=== PATIENT | female | born 1945 | race Caucasian/White ===

== ENCOUNTER 2023-01-04 05:22 | Inpatient (IN) | payer BC, MEDICARE ==
[2023-01-04 06:18] LABS: #Basophils 0.1 thou/uL (0.0-0.2); #Eosinphils 0.1 thou/uL (0.0-0.7); #Monocytes 0.4 thou/uL (0.11-0.59); %Basophils 0.6 % (0.0-1.0); %Eosinophils 0.7 % (0.0-10.0); %Lymphocytes 19.2 % (21.0-51.0); %Neutrophils 73.4 % (42.0-75.0); Hematocrit 40.8 % (36.0-47.0); Hemoglobin 13.8 g/dL (12.0-16.0); Mean Corpuscular HGB CONC 33.8 g/dL (32.0-36.0); Mean Corpuscular Hemoglobin 30.1 pg (27.0-31.0); Mean Corpuscular Volume 89.1 fl (78.0-98.0); Mean Platelet Volume 8.1 fL (7.4-10.4); Platelet Count 213 10x3/uL (130-400); RBC Distribution Width 13.1 % (11.5-14.5); Red Blood Cell (RBC) Count 4.58 mill/uL (4.20-5.40); White Blood Cell (WBC) Count 8.2 10x3/uL (4.8-10.8)
[2023-01-04 06:22] LABS: Actual Bicarbonate (HCO3v) 24.4 mEq/L (22-28); Base Excess -1.1 mEq/L (-2.0 to +3.0); Chloride (VBG) 99 mmol/L (98-106); Hematocrit-VBG 44 % (36.0-47.0); Hemoglobin (Hb) 14.8 g/dL (11.7-16.1); Potassium (VBG) 3.71 mmol/L (3.70-5.30); Sodium 128.6 mmol/L (133-146); pH (venous) 7.364 (7.32-7.43)
[2023-01-04 06:25] LABS: Bacteria/HPF None Seen HPF (None Seen); Bilirubin Negative (Negative); Blood, Urine Negative (Negative); CAUTI Indications for Culture < 2yrs of age; Clarity Clear (Clear); Glucose, Urine (Dipstick) Greater than 1000 mg/dL (Negative); Ketone, Urine 60 mg/dL (Negative); Leukocyte 25 Leu/uL (Negative); Nitrite Negative (Negative); Protein, Urine (Dipstick) Negative (Neg-Trace); RBC/HPF 0-3 HPF (0-3); Specific Gravity, Urine 1.013 (1.002-1.036); Squamous Epithelial None Seen HPF (0-3); Urobilinogen Normal mg/dL (Less than 2)
[2023-01-04 06:27] LABS: Urine Culture Reflex Yes Yes
[2023-01-04] MEDS ORDERED: fentaNYL 50 mcg/mL 1 mL Vial ONE (06:36)
[2023-01-04 06:48] LABS: ALT (SGPT) 16 U/L (8-55); AST (SGOT) 16 U/L (5-34); Albumin 4.1 g/dL (3.4-4.8); Alkaline Phosphatase 65 U/L (40-110); Anion Gap 19 mmol/L (10-20); BUN (Urea Nitrogen) 9 mg/dL (9.8-20.1); Bilirubin, Total 0.5 mg/dL (0.2-1.2); Calc. Creatinine Clearance 0 mL/min (70-130); Carbon Dioxide 23 mmol/L (23-31); Chloride 101 mmol/L (98-107); Estimated GFR 90; Globulin 2.9 g/dL (2.4-3.5); Glucose 340 mg/dL (83-110); Potassium 3.6 mmol/L (3.5-5.1); Sodium 139 mmol/L (136-145)
[2023-01-04] MEDS ORDERED: Ondansetron PF 4 MG/2 ML Vial ONE (06:49)
[2023-01-04] MEDS ORDERED: Ipratropium/Albuterol 3 ML NEB NEB PRN ×2 (07:24→07:26)
[2023-01-04] MEDS ORDERED: Ondansetron PF 4 MG/2 ML Vial IVP PRN (07:24)
[2023-01-04] MEDS ORDERED: Sodium Chloride 0.9% 1,000 ML IV SCH (07:30)
[2023-01-04] MEDS ORDERED: Lisinopril 10 MG TAB ONE (07:55)
[2023-01-04] MEDS ORDERED: Dextrose 50% Abboject 50 ML SYRINGE SLOW IVP PRN (08:05)
[2023-01-04] MEDS ORDERED: Dextrose 5% in Water 1,000 ML IV PRN (08:05)
[2023-01-04] MEDS ORDERED: Glucagon 1 MG/ML KIT IM PRN (08:05)
[2023-01-04] MEDS ORDERED: Lisinopril 20 MG TAB PO SCH (08:30)
[2023-01-04] MEDS ORDERED: Acetaminophen 500 MG TAB ONE ×2 (08:51→15:09)
[2023-01-04] MEDS ORDERED: Famotidine/PF 20 mg/2ml Vial ONE (08:51)
[2023-01-04] MEDS ORDERED: Insulin Glargine 30 UNITS/0.3 ML VIAL SC SCH (09:00)
[2023-01-04] MEDS ORDERED: Calcium Chloride 13.6 MEQ in Sodium Chloride 0.9% 100 ML IVPB SCH (09:00)
[2023-01-04] MEDS: Famotidine/PF 20 mg/2ml Vial SLOW IVP SCH ×2 (09:02→22:33)
[2023-01-04] MEDS: Acetaminophen 500 MG TAB PO SCH ×3 (09:04→22:34)
[2023-01-04] MEDS: Gabapentin 100 MG CAP PO SCH ×3 (10:24→22:33)
[2023-01-04] MEDS: Polyethylene Glycol 3350 17 GM Packet PO SCH (10:25)
[2023-01-04] MEDS: Senokot S 8.6-50 MG TAB PO SCH ×2 (10:25→22:34)
[2023-01-04] MEDS ORDERED: traMADol HCl 50 MG TAB ONE ×2 (11:22→18:30)
[2023-01-04] MEDS: traMADol HCl 50 MG TAB PO SCH ×3 (11:28→23:33)
[2023-01-04] MEDS ORDERED: hydrALAZINE 20 MG/ML VIAL SLOW IVP PRN (14:10)
[2023-01-04] MEDS ORDERED: Labetalol HCl 100 MG/20 ML VIAL SLOW IVP PRN (14:10)
[2023-01-04] MEDS: Morphine 2 MG/ML VIAL SLOW IVP PRN (22:33)
[2023-01-04] MEDS: Atorvastatin Calcium 20 MG TAB PO SCH (22:34)
[2023-01-04] MEDS: metFORMIN XR 500 MG TAB PO SCH (22:34)
[2023-01-04] MEDS: Lisinopril 20 MG TAB PO SCH (22:34)
[2023-01-04] MEDS: Metoprolol Tartrate 25 MG TAB PO SCH (22:34)
[2023-01-04] MEDS: Insulin Glargine 30 UNITS/0.3 ML VIAL SC SCH (22:34)
[2023-01-05] MEDS: Acetaminophen 500 MG TAB PO SCH ×4 (03:58→20:18)
[2023-01-05] MEDS: traMADol HCl 50 MG TAB PO SCH ×4 (05:39→23:42)
[2023-01-05 06:22] LABS: #Eosinphils 0.1 thou/uL (0.0-0.7); #Monocytes 0.5 thou/uL (0.11-0.59); #Neutrophils 4.2 thou/uL (1.40-6.50); %Basophils 0.6 % (0.0-1.0); %Eosinophils 1.7 % (0.0-10.0); %Monocytes 8.3 % (0.0-10.0); %Neutrophils 65.9 % (42.0-75.0); Hematocrit 36.3 % (36.0-47.0); Hemoglobin 12.2 g/dL (12.0-16.0); Mean Corpuscular HGB CONC 33.6 g/dL (32.0-36.0); Mean Corpuscular Hemoglobin 30.4 pg (27.0-31.0); Mean Corpuscular Volume 90.5 fl (78.0-98.0); Mean Platelet Volume 8.2 fL (7.4-10.4); Platelet Count 184 10x3/uL (130-400); RBC Distribution Width 13.4 % (11.5-14.5); Red Blood Cell (RBC) Count 4.01 mill/uL (4.20-5.40); White Blood Cell (WBC) Count 6.4 10x3/uL (4.8-10.8)
[2023-01-05 06:49] LABS: Anion Gap 14 mmol/L (10-20); BUN (Urea Nitrogen) 10 mg/dL (9.8-20.1); Calc. Creatinine Clearance 77 mL/min (70-130); Calcium 8.8 mg/dL (7.8-10.44); Carbon Dioxide 21 mmol/L (23-31); Chloride 104 mmol/L (98-107); Estimated GFR 89; Glucose 197 mg/dL (83-110); Magnesium 1.9 mg/dL (1.6-2.6); Potassium 3.9 mmol/L (3.5-5.1); Sodium 135 mmol/L (136-145)
[2023-01-05 06:51] LABS: Phosphorus 3.1 mg/dL (2.3-4.7)
[2023-01-05 07:46] VITALS: BMI 27.1
[2023-01-05] MEDS: Insulin Glargine 30 UNITS/0.3 ML VIAL SC SCH ×2 (08:43→20:16)
[2023-01-05] MEDS: Famotidine/PF 20 mg/2ml Vial SLOW IVP SCH ×2 (08:43→20:16)
[2023-01-05] MEDS: Lisinopril 20 MG TAB PO SCH ×2 (08:46→20:15)
[2023-01-05] MEDS: Senokot S 8.6-50 MG TAB PO SCH ×2 (08:46→20:15)
[2023-01-05] MEDS: Gabapentin 100 MG CAP PO SCH ×3 (08:46→20:15)
[2023-01-05] MEDS: metFORMIN XR 500 MG TAB PO SCH ×2 (08:46→20:15)
[2023-01-05] MEDS: Metoprolol Tartrate 25 MG TAB PO SCH ×2 (08:46→20:15)
[2023-01-05] MEDS: Polyethylene Glycol 3350 17 GM Packet PO SCH (08:48)
[2023-01-05] MEDS ORDERED: Lisinopril 10 MG TAB PO SCH (09:00)
[2023-01-05] MEDS ORDERED: PHENTERMINE HCL 37.5 MG PO SCH (09:00)
[2023-01-05] MEDS: Morphine 2 MG/ML VIAL SLOW IVP PRN (11:14)
[2023-01-05] MEDS: HumaLOG 300 UNITS/3 ML VIAL SC PRN ×3 (12:20→22:30)
[2023-01-05] MEDS: Atorvastatin Calcium 20 MG TAB PO SCH (20:14)
[2023-01-06] MEDS: traMADol HCl 50 MG TAB PO SCH ×5 (01:08→23:44)
[2023-01-06] MEDS: Acetaminophen 500 MG TAB PO SCH ×4 (03:09→20:47)
[2023-01-06] MEDS: HumaLOG 300 UNITS/3 ML VIAL SC PRN ×4 (06:24→22:04)
[2023-01-06] MEDS: Gabapentin 100 MG CAP PO SCH ×3 (09:31→20:46)
[2023-01-06] MEDS: traMADol HCl 50 MG TAB PO PRN ×2 (09:32→14:56)
[2023-01-06] MEDS: Insulin Glargine 30 UNITS/0.3 ML VIAL SC SCH ×2 (10:08→20:47)
[2023-01-06] MEDS: Lisinopril 20 MG TAB PO SCH ×2 (10:09→20:47)
[2023-01-06] MEDS: metFORMIN XR 500 MG TAB PO SCH ×2 (10:09→20:46)
[2023-01-06] MEDS: Metoprolol Tartrate 25 MG TAB PO SCH ×2 (10:09→20:47)
[2023-01-06] MEDS: Senokot S 8.6-50 MG TAB PO SCH ×2 (10:09→20:47)
[2023-01-06] MEDS: Polyethylene Glycol 3350 17 GM Packet PO SCH (10:12)
[2023-01-06] MEDS: Famotidine/PF 20 mg/2ml Vial SLOW IVP SCH ×2 (10:16→20:47)
[2023-01-06] MEDS: hydrALAZINE 20 MG/ML VIAL SLOW IVP PRN (17:42)
[2023-01-06] MEDS: Atorvastatin Calcium 20 MG TAB PO SCH (20:46)
[2023-01-07] MEDS: Acetaminophen 500 MG TAB PO SCH ×4 (03:17→20:42)
[2023-01-07] MEDS: traMADol HCl 50 MG TAB PO SCH ×4 (06:18→23:05)
[2023-01-07] MEDS: HumaLOG 300 UNITS/3 ML VIAL SC PRN ×3 (06:19→20:41)
[2023-01-07] MEDS: hydrALAZINE 20 MG/ML VIAL SLOW IVP PRN (06:29)
[2023-01-07] MEDS ORDERED: diphenhydrAMINE 25 MG CAP PO PRN (07:46)
[2023-01-07] MEDS: Lisinopril 20 MG TAB PO SCH ×2 (08:06→20:42)
[2023-01-07] MEDS: metFORMIN XR 500 MG TAB PO SCH ×2 (08:06→20:42)
[2023-01-07] MEDS: Famotidine/PF 20 mg/2ml Vial SLOW IVP SCH (08:07)
[2023-01-07] MEDS: Insulin Glargine 30 UNITS/0.3 ML VIAL SC SCH ×2 (08:07→20:41)
[2023-01-07] MEDS: Senokot S 8.6-50 MG TAB PO SCH ×2 (08:07→20:42)
[2023-01-07] MEDS: Metoprolol Tartrate 25 MG TAB PO SCH ×2 (08:07→20:42)
[2023-01-07] MEDS: Gabapentin 100 MG CAP PO SCH ×3 (08:07→20:43)
[2023-01-07] MEDS: Polyethylene Glycol 3350 17 GM Packet PO SCH (08:10)
[2023-01-07] MEDS: traMADol HCl 50 MG TAB PO PRN (17:43)
[2023-01-07] MEDS: Cyclobenzaprine 10 MG TAB PO PRN (20:42)
[2023-01-07] MEDS: Atorvastatin Calcium 20 MG TAB PO SCH (20:42)
[2023-01-08] MEDS: Acetaminophen 500 MG TAB PO SCH ×4 (04:08→21:12)
[2023-01-08] MEDS: traMADol HCl 50 MG TAB PO SCH ×3 (05:05→17:54)
[2023-01-08] MEDS: Gabapentin 100 MG CAP PO SCH ×3 (09:10→21:12)
[2023-01-08] MEDS: Metoprolol Tartrate 25 MG TAB PO SCH ×2 (09:10→21:10)
[2023-01-08] MEDS: Lisinopril 20 MG TAB PO SCH ×2 (09:10→21:11)
[2023-01-08] MEDS: metFORMIN XR 500 MG TAB PO SCH ×2 (09:10→21:12)
[2023-01-08] MEDS: Insulin Glargine 30 UNITS/0.3 ML VIAL SC SCH ×2 (09:10→21:13)
[2023-01-08] MEDS: Senokot S 8.6-50 MG TAB PO SCH ×2 (11:39→21:12)
[2023-01-08] MEDS: Polyethylene Glycol 3350 17 GM Packet PO SCH (11:39)
[2023-01-08] MEDS: HumaLOG 300 UNITS/3 ML VIAL SC PRN ×2 (17:58→21:13)
[2023-01-08] MEDS: Atorvastatin Calcium 20 MG TAB PO SCH (21:12)
[2023-01-08] MEDS: Cyclobenzaprine 10 MG TAB PO PRN (22:38)
[2023-01-08] MEDS: traMADol HCl 50 MG TAB PO PRN (22:38)
[2023-01-09] MEDS: traMADol HCl 50 MG TAB PO SCH ×5 (00:05→23:33)
[2023-01-09] MEDS: Acetaminophen 500 MG TAB PO SCH ×4 (03:09→20:36)
[2023-01-09] MEDS: Metoprolol Tartrate 25 MG TAB PO SCH ×2 (10:28→20:36)
[2023-01-09] MEDS: metFORMIN XR 500 MG TAB PO SCH ×2 (10:28→20:36)
[2023-01-09] MEDS: Gabapentin 100 MG CAP PO SCH ×3 (10:29→20:36)
[2023-01-09] MEDS: Lisinopril 20 MG TAB PO SCH ×2 (10:29→20:36)
[2023-01-09] MEDS: Senokot S 8.6-50 MG TAB PO SCH ×2 (10:30→20:36)
[2023-01-09] MEDS: Polyethylene Glycol 3350 17 GM Packet PO SCH (10:30)
[2023-01-09] MEDS: Insulin Glargine 30 UNITS/0.3 ML VIAL SC SCH ×2 (10:53→20:38)
[2023-01-09] MEDS: Atorvastatin Calcium 20 MG TAB PO SCH (20:36)
[2023-01-10] MEDS: traMADol HCl 50 MG TAB PO SCH ×4 (00:19→17:02)
[2023-01-10] MEDS: traMADol HCl 50 MG TAB PO PRN ×2 (02:18→20:27)
[2023-01-10] MEDS: Cyclobenzaprine 10 MG TAB PO PRN ×2 (02:18→17:02)
[2023-01-10] MEDS: Acetaminophen 500 MG TAB PO SCH ×4 (02:18→20:25)
[2023-01-10] MEDS: Metoprolol Tartrate 25 MG TAB PO SCH ×2 (08:01→20:29)
[2023-01-10] MEDS: Senokot S 8.6-50 MG TAB PO SCH ×2 (08:01→20:28)
[2023-01-10] MEDS: Lisinopril 20 MG TAB PO SCH ×2 (08:01→20:28)
[2023-01-10] MEDS: Polyethylene Glycol 3350 17 GM Packet PO SCH (08:01)
[2023-01-10] MEDS: Insulin Glargine 30 UNITS/0.3 ML VIAL SC SCH ×2 (08:02→20:29)
[2023-01-10] MEDS: metFORMIN XR 500 MG TAB PO SCH ×2 (08:02→20:28)
[2023-01-10] MEDS: Gabapentin 100 MG CAP PO SCH ×3 (08:02→20:28)
[2023-01-10] MEDS: HumaLOG 300 UNITS/3 ML VIAL SC PRN ×2 (12:14→17:03)
[2023-01-10] MEDS: Atorvastatin Calcium 20 MG TAB PO SCH (20:28)
[2023-01-11] MEDS: traMADol HCl 50 MG TAB PO SCH ×5 (01:01→23:47)
[2023-01-11] MEDS: Acetaminophen 500 MG TAB PO SCH ×4 (02:21→20:57)
[2023-01-11] MEDS: Cyclobenzaprine 10 MG TAB PO PRN (02:22)
[2023-01-11] MEDS: Lisinopril 20 MG TAB PO SCH ×2 (08:12→20:54)
[2023-01-11] MEDS: Gabapentin 100 MG CAP PO SCH ×3 (08:12→20:53)
[2023-01-11] MEDS: Insulin Glargine 30 UNITS/0.3 ML VIAL SC SCH ×2 (08:13→20:50)
[2023-01-11] MEDS: Senokot S 8.6-50 MG TAB PO SCH ×2 (08:13→20:54)
[2023-01-11] MEDS: Metoprolol Tartrate 25 MG TAB PO SCH ×2 (08:14→20:52)
[2023-01-11] MEDS: metFORMIN XR 500 MG TAB PO SCH ×2 (08:14→20:54)
[2023-01-11] MEDS: Polyethylene Glycol 3350 17 GM Packet PO SCH (08:14)
[2023-01-11] MEDS: traMADol HCl 50 MG TAB PO PRN (20:52)
[2023-01-11] MEDS: Atorvastatin Calcium 20 MG TAB PO SCH (20:54)
[2023-01-12] MEDS: Acetaminophen 500 MG TAB PO SCH ×4 (02:12→21:48)
[2023-01-12] MEDS: Cyclobenzaprine 10 MG TAB PO PRN ×3 (02:12→21:47)
[2023-01-12] MEDS: traMADol HCl 50 MG TAB PO PRN (03:56)
[2023-01-12] MEDS: traMADol HCl 50 MG TAB PO SCH ×3 (06:39→17:52)
[2023-01-12] MEDS: HumaLOG 300 UNITS/3 ML VIAL SC PRN ×3 (07:22→17:54)
[2023-01-12] MEDS: Polyethylene Glycol 3350 17 GM Packet PO SCH (09:57)
[2023-01-12] MEDS: metFORMIN XR 500 MG TAB PO SCH ×2 (09:58→21:47)
[2023-01-12] MEDS: Senokot S 8.6-50 MG TAB PO SCH ×2 (09:58→21:47)
[2023-01-12] MEDS: Insulin Glargine 30 UNITS/0.3 ML VIAL SC SCH ×2 (09:58→21:45)
[2023-01-12] MEDS: Lisinopril 20 MG TAB PO SCH ×2 (09:58→21:44)
[2023-01-12] MEDS: Metoprolol Tartrate 25 MG TAB PO SCH ×2 (09:58→21:47)
[2023-01-12] MEDS: Gabapentin 100 MG CAP PO SCH ×3 (09:59→21:47)
[2023-01-12] MEDS: Atorvastatin Calcium 20 MG TAB PO SCH (21:47)
[2023-01-12] MEDS: Famotidine 20 MG TAB PO SCH (21:48)
[2023-01-13] MEDS: traMADol HCl 50 MG TAB PO SCH ×4 (00:25→18:04)
[2023-01-13] MEDS: Acetaminophen 500 MG TAB PO SCH ×3 (03:59→15:21)
[2023-01-13] MEDS: HumaLOG 300 UNITS/3 ML VIAL SC PRN ×2 (06:35→12:10)
[2023-01-13 07:07] LABS: Hematocrit 37.4 % (36.0-47.0); Hemoglobin 12.3 g/dL (12.0-16.0); Platelet Count 283 10x3/uL (130-400)
[2023-01-13] MEDS: Famotidine 20 MG TAB PO SCH (08:45)
[2023-01-13] MEDS: Senokot S 8.6-50 MG TAB PO SCH (08:46)
[2023-01-13] MEDS: Lisinopril 20 MG TAB PO SCH (08:47)
[2023-01-13] MEDS: Gabapentin 100 MG CAP PO SCH ×2 (08:49→15:22)
[2023-01-13] MEDS: metFORMIN XR 500 MG TAB PO SCH (08:49)
[2023-01-13] MEDS: Metoprolol Tartrate 25 MG TAB PO SCH (08:49)
[2023-01-13] MEDS: Insulin Glargine 30 UNITS/0.3 ML VIAL SC SCH (08:50)
[2023-01-13] MEDS: Polyethylene Glycol 3350 17 GM Packet PO SCH (08:50)
[2023-01-13] MEDS ORDERED: Ibuprofen 200 MG TAB PO SCH ×2 (10:45→18:00)
[2023-01-13 15:48] VITALS: BP 151/71; TEMP 98.2
== END 2023-01-13 18:40 | disposition home or self-care (01) | DRG 536 ==
LOC: ERS 05:22 → ERHOLD 07:27 → SURG A 22:12 → OBSVTOIN 01-06 13:16
PROVIDERS: ADMIT Specialist; ATTEND Specialist
DX: S32.402A Unspecified fracture of left acetabulum, initial encounter for closed fracture (principal); E11.9 Type 2 diabetes mellitus without complications; I25.10 Atherosclerotic heart disease of native coronary artery without angina pectoris; J30.2 Other seasonal allergic rhinitis; E78.5 Hyperlipidemia, unspecified; Z96.612 Presence of left artificial shoulder joint; I10 Essential (primary) hypertension; W18.30XA Fall on same level, unspecified, initial encounter; Z88.5 Allergy status to narcotic agent; Z90.710 Acquired absence of both cervix and uterus; Z98.890 Other specified postprocedural states; Z79.84 Long term (current) use of oral hypoglycemic drugs; Z79.4 Long term (current) use of insulin; Z79.899 Other long term (current) drug therapy; Z87.81 Personal history of (healed) traumatic fracture
CPT/HCPCS: 36415; 36416; 71045; 72170; 72190; 72192; 80048; 80053; 81001; 82010; 82565; 82805; 83735; 84100; 84484; 85014; 85018; 85025; 85049; 87086; 93005; 96361; 96374; 96375; G0390; J0360; J1650; J1815; J2272; J2405; J3010; J3490; J7050; S0028

== ENCOUNTER 2023-02-14 13:13 | Inpatient (IN) | payer BC, MEDICARE ==
[2023-02-14] MEDS ORDERED: LORazepam 2 MG/ML SYR.(CARPUJECT) ONE ×2 (14:09→15:02)
[2023-02-14 14:16] LABS: #Basophils 0.1 thou/uL (0.0-0.2); #Monocytes 0.9 thou/uL (0.11-0.59); #Neutrophils 16.7 thou/uL (1.40-6.50); %Basophils 0.4 % (0.0-1.0); %Eosinophils 0.1 % (0.0-10.0); %Lymphocytes 8.1 % (21.0-51.0); %Monocytes 4.6 % (0.0-10.0); %Neutrophils 85.7 % (42.0-75.0); Hematocrit 46.7 % (36.0-47.0); Hemoglobin 15.1 g/dL (12.0-16.0); Mean Corpuscular HGB CONC 32.3 g/dL (32.0-36.0); Mean Corpuscular Hemoglobin 30.5 pg (27.0-31.0); Mean Corpuscular Volume 94.3 fl (78.0-98.0); Mean Platelet Volume 8.5 fL (7.4-10.4); Platelet Count 359 10x3/uL (130-400); RBC Distribution Width 14.3 % (11.5-14.5); Red Blood Cell (RBC) Count 4.95 mill/uL (4.20-5.40); White Blood Cell (WBC) Count 19.5 10x3/uL (4.8-10.8)
[2023-02-14 14:47] LABS: ALT (SGPT) 13 U/L (8-55); AST (SGOT) 19 U/L (5-34); Albumin 4.9 g/dL (3.4-4.8); Alkaline Phosphatase 203 U/L (40-110); BUN (Urea Nitrogen) 12 mg/dL (9.8-20.1); Bilirubin, Total 0.2 mg/dL (0.2-1.2); Calc. Creatinine Clearance 0 mL/min (70-130); Calcium 10.4 mg/dL (7.8-10.44); Carbon Dioxide Less than 8 mmol/L (23-31); Chloride 103 mmol/L (98-107); Estimated GFR 36; Globulin 3.8 g/dL (2.4-3.5); Glucose 504 mg/dL (83-110); Potassium 5.1 mmol/L (3.5-5.1); Protein, Total 8.7 g/dL (5.8-8.1); Sodium 139 mmol/L (136-145); Troponin I 0.206 ng/mL (< 0.028)
[2023-02-14] MEDS ORDERED: Cefepime 2 GM VIAL ONE (14:56)
[2023-02-14] MEDS ORDERED: VANCOMYCIN 1.25 GM/250 ML BAG 1.25 GM in Premix Bag 1 BAG IVPB SCH ×2 (15:00→15:45)
[2023-02-14 15:19] LABS: Acetaminophen Less than 10 mcg/mL (10.0-30.0); Alcohol Less than 10.0 mg/dL (Less than 10); Lipase 24 U/L (8-78); Salicylate Less than 8.0 mg/dL (15.0-30.0)
[2023-02-14 15:19] LABS: Bacteria/HPF None Seen HPF (None Seen); Bilirubin Negative (Negative); Blood, Urine Trace (Negative); CAUTI Indications for Culture Alt mental st,lethar; Clarity Clear (Clear); Glucose, Urine (Dipstick) Greater than 1000 mg/dL (Negative); Ketone, Urine Greater than 150 mg/dL (Negative); Leukocyte Negative Leu/uL (Negative); Nitrite Negative (Negative); Protein, Urine (Dipstick) 50 mg/dL (Neg-Trace); RBC/HPF 0-3 HPF (0-3); Specific Gravity, Urine 1.021 (1.002-1.036); Squamous Epithelial 0-3 HPF (0-3); Urobilinogen Normal mg/dL (Less than 2); WBC/HPF 0-3 HPF (0-3); pH, Urine 5.5 (5.0-9.0)
[2023-02-14 15:20] LABS: Urine Culture Reflex No No
[2023-02-14 15:26] LABS: Amphetamine Not Detected (NotDetected); Barbiturates Screen Not Detected (NotDetected); Benzodiazepine Screen Not Detected (NotDetected); Cocaine Metabolite Screen Not Detected (NotDetected); Methadone Not Detected (NotDetected); Methamphetamine Not Detected (NotDetected); Opiate Screen Not Detected (NotDetected); Oxycodone Screen Not Detected (NotDetected); Phencyclidine (PCP) Not Detected (NotDetected); THC/Cannabinoid Screen Not Detected (NotDetected); Tricyclic Screen Not Detected (NotDetected)
[2023-02-14 15:31] LABS: Analyzer IN Cardio ER; Base Excess (BEa) -27.4 mEq/L (-2.0 to +3.0); Calcium, Ionized (arterial) 1.41 mmol/L (1.12-1.30); Carboxyhemoglobin (COHb) 0.4 gm% (0.0-3.0); Hematocrit-ABG 43 % (36.0-47.0); Hemoglobin (Hb) 14.6 g/dL (12.0-16.0); O2 Tension (PaO2), arterial 137.5 mmHg (> 70.0); Potassium - ABG Lab 4.11 mmol/L (3.70-5.30)
[2023-02-14 15:35] LABS: CO2 Tension 10.8 mmHg (35.0-45.0); pH, Arterial 6.977 (7.35-7.45)
[2023-02-14 15:36] LABS: Actual Bicarbonate (HCO3a) 2.5 mEq/L (22-28)
[2023-02-14] MEDS ORDERED: Aspirin 300 MG Suppository ONE ×2 (15:37→15:41)
[2023-02-14] MEDS ORDERED: INSULIN REGULAR IN 0.9 % NACL 100 UNITS/100 ML BAG ONE (15:37)
[2023-02-14] MEDS ORDERED: Insulin Regular 300 UNITS/3 ML VIAL ONE (15:37)
[2023-02-14] MEDS ORDERED: Sodium Bicarb 50 MEQ/50 ML VIAL ONE ×3 (15:38→18:41)
[2023-02-14 15:40] LABS: SARS-CoV-2 NAA Rapid Test Not Detected (NotDetected)
[2023-02-14] MEDS ORDERED: Dextrose 50% Abboject 50 ML SYRINGE SLOW IVP PRN (16:25)
[2023-02-14] MEDS ORDERED: Ondansetron PF 4 MG/2 ML Vial IVP PRN (16:25)
[2023-02-14] MEDS ORDERED: Bisacodyl 10 MG SUPP PR PRN (16:25)
[2023-02-14] MEDS ORDERED: NS 0.9% w/ 20 MEQ KCL 1,000 ML IV PRN (16:25)
[2023-02-14] MEDS ORDERED: Sodium Chloride 0.9% 1,000 ML IV PRN ×4 (16:25)
[2023-02-14] MEDS ORDERED: Acetaminophen 650 MG Suppository PR PRN (16:25)
[2023-02-14] MEDS ORDERED: Dextrose 5 %-0.45 % NaCl 1,000 ML IV PRN (16:25)
[2023-02-14] MEDS ORDERED: D5 1/2 NS w/20 mEq KCL 1,000 ML IV PRN (16:25)
[2023-02-14] MEDS ORDERED: Electrolyte Replacement Protocol 1 EACH IVPB SCH (16:25)
[2023-02-14] MEDS ORDERED: Senokot S 8.6-50 MG TAB PO PRN (16:25)
[2023-02-14] MEDS ORDERED: HUMULIN R 100 UNITS in Sodium Chloride 0.9% 100 ML IVPB SCH (16:30)
[2023-02-14] MEDS ORDERED: Insulin Regular 300 UNITS/3 ML VIAL IVP SCH (16:30)
[2023-02-14 17:26] LABS: BUN (Urea Nitrogen) 12 mg/dL (9.8-20.1); Calc. Creatinine Clearance 0 mL/min (70-130); Calcium 9.8 mg/dL (7.8-10.44); Chloride 106 mmol/L (98-107); Estimated GFR 42; Potassium 3.7 mmol/L (3.5-5.1); Sodium 139 mmol/L (136-145)
[2023-02-14 17:31] LABS: Carbon Dioxide Less than 8 mmol/L (23-31); Glucose 451 mg/dL (83-110); Lactic Acid 5.4 mmol/L (0.5-2.2)
[2023-02-14] MEDS ORDERED: Sodium Bicarb 50 MEQ/50 ML VIAL IVP SCH (18:45)
[2023-02-14] MEDS ORDERED: Sodium Bicarbonate 150 MEQ in Dextrose 5% in Water 1,000 ML IV SCH (19:00)
[2023-02-14] MEDS ORDERED: Lactated Ringer's 1,000 ML IV SCH (19:00)
[2023-02-14] MEDS ORDERED: dilTIAZem 25 MG/5 ML VIAL SLOW IVP SCH (19:15)
[2023-02-14 19:17] LABS: BUN (Urea Nitrogen) 14 mg/dL (9.8-20.1); Calc. Creatinine Clearance 0 mL/min (70-130); Chloride 113 mmol/L (98-107); Estimated GFR 51; Glucose 305 mg/dL (83-110); Magnesium 2.1 mg/dL (1.6-2.6); Phosphorus 2.4 mg/dL (2.3-4.7); Sodium 145 mmol/L (136-145)
[2023-02-14 19:23] LABS: Carbon Dioxide Less than 8 mmol/L (23-31)
[2023-02-14] MEDS ORDERED: dilTIAZem 125 MG in Sodium Chloride 0.9% 100 ML IVPB SCH (19:30)
[2023-02-14] MEDS ORDERED: Magnesium 2 GM/50 ML(in water) 2 GM in Premix Bag 1 BAG IVPB SCH (19:30)
[2023-02-14 19:36] LABS: Base Excess -24.7 mEq/L (-2.0 to +3.0); Calcium, Ionized (venous) 1.32 mmol/L (1.16-1.32); Chloride (VBG) 113 mmol/L (98-106); Hematocrit-VBG 36 % (36.0-47.0); Hemoglobin (Hb) 12.4 g/dL (11.7-16.1); Potassium (VBG) 2.83 mmol/L (3.70-5.30)
[2023-02-14 19:39] LABS: Actual Bicarbonate (HCO3v) 4.6 mEq/L (22-28); pH (venous) 7.017 (7.32-7.43)
[2023-02-14 19:41] LABS: Troponin I 4.269 ng/mL (< 0.028)
[2023-02-14] MEDS: Potassium Chloride 20 MEQ in Premix Bag 1 BAG IVPB SCH ×2 (19:43→21:27)
[2023-02-14] MEDS ORDERED: Phenylephrine 40 MG/NS 250 ML 40 MG in Premix Bag 1 BAG IVPB SCH (20:00)
[2023-02-14] MEDS: Amiodarone 450 MG, Admixture Fee 1 EACH in Dextrose 5% in Water 250 ML IVPB SCH (20:16)
[2023-02-14] MEDS ORDERED: Famotidine/PF 20 mg/2ml Vial SLOW IVP SCH (21:00)
[2023-02-14] MEDS ORDERED: Fentanyl CADD 100 ML ONE (21:10)
[2023-02-14 21:13] LABS: Base Excess (BEa) -23.4 mEq/L (-2.0 to +3.0); CO2 Tension 25.1 mmHg (35.0-45.0); Calcium, Ionized (arterial) 1.34 mmol/L (1.12-1.30); Carboxyhemoglobin (COHb) 0.2 gm% (0.0-3.0); Hematocrit-ABG 38 % (36.0-47.0); Hemoglobin (Hb) 12.8 g/dL (12.0-16.0); O2 Tension (PaO2), arterial 471.3 mmHg (> 70.0); Potassium - ABG Lab 3.06 mmol/L (3.70-5.30)
[2023-02-14] MEDS ORDERED: PROPOFOL 200 MG/20 ML VIAL ONE (21:13)
[2023-02-14] MEDS ORDERED: Rocuronium Bromide 10 MG/ML (10ML VIAL) ONE (21:13)
[2023-02-14] MEDS ORDERED: Ventilator Sedation Protocol 1 EACH FS SCH (21:15)
[2023-02-14 21:18] LABS: ALV-art Gradient 210.325 mmHg (0-20); Actual Bicarbonate (HCO3a) 6.3 mEq/L (22-28); Puncture Site LBA; pH, Arterial 7.015 (7.35-7.45)
[2023-02-14] MEDS ORDERED: PROPOFOL 200 MG/20 ML VIAL IV SCH (21:30)
[2023-02-14] MEDS ORDERED: Dexmedetomidine In 0.9 % NaCl 100 ML IVPB SCH (21:30)
[2023-02-14] MEDS ORDERED: DISCONTINUE PREVIOUS NARCOTIC PAIN MEDICATIONS AND BENZODIAZEPINES FS SCH (21:30)
[2023-02-14] MEDS ORDERED: Fentanyl CADD 100 ML IV SCH (21:30)
[2023-02-14] MEDS ORDERED: Morphine 2 MG/ML VIAL SLOW IVP PRN (21:30)
[2023-02-14] MEDS ORDERED: Propofol BOLUS 1,000 MG/100 ML VIAL IV PRN (21:30)
[2023-02-14] MEDS ORDERED: Propofol 1,000 MG/100 ML VIAL IV PRN (21:30)
[2023-02-14] MEDS ORDERED: Lactated Ringer's 500 ML IV SCH (21:30)
[2023-02-14] MEDS ORDERED: Fentanyl BOLUS 250 ML IVPB PRN (21:30)
[2023-02-14] MEDS ORDERED: Rocuronium Bromide 10 MG/ML (10ML VIAL) IVP SCH (21:30)
[2023-02-14] MEDS: NS 0.9% w/ 20 MEQ KCL 1,000 ML IV PRN (21:38)
[2023-02-14] MEDS ORDERED: Dexmedetomidine 400 MCG, Admixture Fee 1 EACH in Sodium Chloride 0.9% 96 ML IVPB SCH (21:45)
[2023-02-14 23:50] LABS: Lactic Acid 1.8 mmol/L (0.5-2.2)
[2023-02-15] LABS: Anion Gap 22 mmol/L (10-20); BUN (Urea Nitrogen) 14 mg/dL (9.8-20.1); Calc. Creatinine Clearance 56 mL/min (70-130); Chloride 115 mmol/L (98-107); Estimated GFR 65; Glucose 333 mg/dL (83-110); Potassium 3.8 mmol/L (3.5-5.1); Sodium 141 mmol/L (136-145)
[2023-02-15 00:20] LABS: Carbon Dioxide 8 mmol/L (23-31); Troponin I 11.145 ng/mL (< 0.028)
[2023-02-15] MEDS: Potassium Chloride 20 MEQ in Premix Bag 1 BAG IVPB SCH ×4 (01:30→11:14)
[2023-02-15] MEDS: NS 0.9% w/ 20 MEQ KCL 1,000 ML IV PRN ×2 (01:47→06:27)
[2023-02-15 04:42] LABS: Lactic Acid 2.4 mmol/L (0.5-2.2)
[2023-02-15 05:23] LABS: #Monocytes 0.9 thou/uL (0.11-0.59); %Basophils 0.1 % (0.0-1.0); %Lymphocytes 14.8 % (21.0-51.0); %Monocytes 6.2 % (0.0-10.0); Mean Corpuscular HGB CONC 34.2 g/dL (32.0-36.0); Mean Corpuscular Hemoglobin 30.2 pg (27.0-31.0); Mean Platelet Volume 8.8 fL (7.4-10.4); RBC Distribution Width 14.2 % (11.5-14.5); Red Blood Cell (RBC) Count 3.68 mill/uL (4.20-5.40); White Blood Cell (WBC) Count 14.2 10x3/uL (4.8-10.8)
[2023-02-15 05:33] LABS: Hematocrit 32.5 % (36.0-47.0); Hemoglobin 11.1 g/dL (12.0-16.0)
[2023-02-15 05:34] LABS: Mean Corpuscular Volume 88.3 fl (78.0-98.0); Platelet Count 190 10x3/uL (130-400)
[2023-02-15 06:19] LABS: ALT (SGPT) 11 U/L (8-55); AST (SGOT) 53 U/L (5-34); Albumin 3.1 g/dL (3.4-4.8); Alkaline Phosphatase 120 U/L (40-110); Anion Gap 16 mmol/L (10-20); BUN (Urea Nitrogen) 15 mg/dL (9.8-20.1); Bilirubin, Total 0.3 mg/dL (0.2-1.2); Calc. Creatinine Clearance 51 mL/min (70-130); Calcium 8.4 mg/dL (7.8-10.44); Carbon Dioxide 13 mmol/L (23-31); Cardiac Risk 3.9 (Less than 4.5); Chloride 116 mmol/L (98-107); Cholesterol 122 mg/dl (< 200 Desired); Estimated GFR 57; Globulin 1.9 g/dL (2.4-3.5); Glucose 302 mg/dL (83-110); HDL Cholesterol 31 mg/dL (>60 Neg Risk); LDL Cholesterol, Calculated 73 mg/dL; Phosphorus Less than 1.0 mg/dL (2.3-4.7); Potassium 3.2 mmol/L (3.5-5.1); Sodium 142 mmol/L (136-145); Triglycerides 91 mg/dL (Less than 150)
[2023-02-15] MEDS: Lorazepam 2 MG/ML VIAL SLOW IVP PRN ×2 (06:53→22:10)
[2023-02-15] MEDS ORDERED: Potassium Phosphate 30 MMOL in Sodium Chloride 0.9% 250 ML 250 ML IVPB SCH (07:00)
[2023-02-15] MEDS ORDERED: Magnesium 2 GM/50 ML(in water) 2 GM in Premix Bag 1 BAG IVPB SCH (08:00)
[2023-02-15 08:14] LABS: Base Excess (BEa) -7.5 mEq/L (-2.0 to +3.0); Calcium, Ionized (arterial) 1.24 mmol/L (1.12-1.30); Carboxyhemoglobin (COHb) 0.4 gm% (0.0-3.0); Hematocrit-ABG 35 % (36.0-47.0); Hemoglobin (Hb) 11.9 g/dL (12.0-16.0); O2 Tension (PaO2), arterial 207.9 mmHg (> 70.0); Potassium - ABG Lab 3.44 mmol/L (3.70-5.30); pH, Arterial 7.443 (7.35-7.45)
[2023-02-15 08:16] LABS: Actual Bicarbonate (HCO3a) 14.7 mEq/L (22-28); Puncture Site LRA
[2023-02-15 08:27] VITALS: BMI 24.3
[2023-02-15] MEDS ORDERED: Aspirin Chewable 81 MG TAB PER TUBE SCH (09:00)
[2023-02-15] MEDS: Pantoprazole 40 MG VIAL IVP SCH ×2 (09:05→21:31)
[2023-02-15] MEDS: Insulin Glargine 30 UNITS/0.3 ML VIAL SC SCH (09:13)
[2023-02-15] MEDS ORDERED: Insulin Glargine 30 UNITS/0.3 ML VIAL SC SCH (09:15)
[2023-02-15] MEDS ORDERED: NOREPINEPHRINE 8 MG/250 ML-D5W 250 ML IVPB SCH (09:45)
[2023-02-15] MEDS: Sodium Chloride 0.45% 1,000 ML IV SCH ×3 (09:49→23:15)
[2023-02-15] MEDS ORDERED: Atorvastatin Calcium 40 MG TAB PO SCH (11:30)
[2023-02-15] MEDS: Amiodarone 450 MG, Admixture Fee 1 EACH in Dextrose 5% in Water 250 ML IVPB SCH (11:41)
[2023-02-15] MEDS: HumaLOG 300 UNITS/3 ML VIAL SC PRN ×2 (12:07→21:56)
[2023-02-15] MEDS ORDERED: Digoxin 0.5 MG/2 ML AMP SLOW IVP SCH ×2 (12:30→14:00)
[2023-02-15] MEDS: Cefepime 1 GM in Sodium Chloride 0.9% 100 ML IVPB SCH (13:22)
[2023-02-15] MEDS ORDERED: Cefepime 1 GM in Sodium Chloride 0.9% 100 ML IVPB SCH (14:00)
[2023-02-15 14:39] LABS: Potassium 4.6 mmol/L (3.5-5.1)
[2023-02-15 14:44] LABS: Phosphorus 2.5 mg/dL (2.3-4.7)
[2023-02-15 14:45] LABS: Magnesium 2.4 mg/dL (1.6-2.6)
[2023-02-15] MEDS ORDERED: Vancomycin 1 GM in Premix Bag 1 BAG IVPB SCH (15:00)
[2023-02-15 18:58] LABS: Troponin I 14.849 ng/mL (< 0.028)
[2023-02-15] MEDS: Atorvastatin Calcium 40 MG TAB PO SCH (21:30)
[2023-02-15] MEDS: Acetaminophen 325 MG TAB PO PRN (22:09)
[2023-02-16] MEDS: Cefepime 1 GM in Sodium Chloride 0.9% 100 ML IVPB SCH ×2 (02:00→13:53)
[2023-02-16] MEDS: HumaLOG 300 UNITS/3 ML VIAL SC PRN ×6 (02:07→23:47)
[2023-02-16] MEDS: Amiodarone 450 MG, Admixture Fee 1 EACH in Dextrose 5% in Water 250 ML IVPB SCH ×2 (02:26→18:12)
[2023-02-16 04:34] LABS: #Monocytes 0.7 thou/uL (0.11-0.59); #Neutrophils 6.8 thou/uL (1.40-6.50); %Lymphocytes 12.5 % (21.0-51.0); %Neutrophils 78.2 % (42.0-75.0); Hematocrit 28.2 % (36.0-47.0); Hemoglobin 9.9 g/dL (12.0-16.0); Mean Corpuscular HGB CONC 35.1 g/dL (32.0-36.0); Mean Corpuscular Volume 88.4 fl (78.0-98.0); Platelet Count 127 10x3/uL (130-400); RBC Distribution Width 15.3 % (11.5-14.5); Red Blood Cell (RBC) Count 3.19 mill/uL (4.20-5.40); White Blood Cell (WBC) Count 8.7 10x3/uL (4.8-10.8)
[2023-02-16 05:05] LABS: ALT (SGPT) 39 U/L (8-55); AST (SGOT) 63 U/L (5-34); Albumin 2.7 g/dL (3.4-4.8); Alkaline Phosphatase 135 U/L (40-110); Anion Gap 11 mmol/L (10-20); BUN (Urea Nitrogen) 13 mg/dL (9.8-20.1); Bilirubin, Total 0.3 mg/dL (0.2-1.2); Calc. Creatinine Clearance 62 mL/min (70-130); Calcium 8.9 mg/dL (7.8-10.44); Carbon Dioxide 17 mmol/L (23-31); Chloride 114 mmol/L (98-107); Estimated GFR 71; Glucose 227 mg/dL (83-110); Magnesium 2.1 mg/dL (1.6-2.6); Phosphorus 1.8 mg/dL (2.3-4.7); Potassium 3.7 mmol/L (3.5-5.1); Protein, Total 4.7 g/dL (5.8-8.1); Sodium 138 mmol/L (136-145)
[2023-02-16 05:06] LABS: Critical Call Chem Troponin I RESULT DECREASING
[2023-02-16] MEDS: Lorazepam 2 MG/ML VIAL SLOW IVP PRN (06:34)
[2023-02-16] MEDS ORDERED: Potassium Phosphate 15 MMOL in Sodium Chloride 0.9% 100 ML IVPB SCH (08:00)
[2023-02-16 08:08] LABS: Actual Bicarbonate (HCO3a) 17.3 mEq/L (22-28); Base Excess (BEa) -4.6 mEq/L (-2.0 to +3.0); Calcium, Ionized (arterial) 1.28 mmol/L (1.12-1.30); Carboxyhemoglobin (COHb) 0.4 gm% (0.0-3.0); Hematocrit-ABG 32 % (36.0-47.0); Hemoglobin (Hb) 10.8 g/dL (12.0-16.0); O2 Tension (PaO2), arterial 132.2 mmHg (> 70.0); Potassium - ABG Lab 3.42 mmol/L (3.70-5.30); pH, Arterial 7.487 (7.35-7.45)
[2023-02-16 08:09] LABS: CO2 Tension 23.4 mmHg (35.0-45.0); Puncture Site LRA
[2023-02-16] MEDS: Sodium Chloride 0.45% 1,000 ML IV SCH ×2 (08:20→18:15)
[2023-02-16] MEDS: Pantoprazole 40 MG VIAL IVP SCH ×2 (08:20→20:31)
[2023-02-16] MEDS: Insulin Glargine 30 UNITS/0.3 ML VIAL SC SCH (08:20)
[2023-02-16] MEDS ORDERED: Digoxin 0.5 MG/2 ML AMP SLOW IVP SCH (09:00)
[2023-02-16] MEDS: Dexmedetomidine 400 MCG, Admixture Fee 1 EACH in Sodium Chloride 0.9% 96 ML IVPB SCH (10:32)
[2023-02-16] MEDS: Atorvastatin Calcium 40 MG TAB PO SCH (20:31)
[2023-02-17] MEDS: Dexmedetomidine 400 MCG, Admixture Fee 1 EACH in Sodium Chloride 0.9% 96 ML IVPB SCH (01:02)
[2023-02-17] MEDS: Cefepime 1 GM in Sodium Chloride 0.9% 100 ML IVPB SCH (01:06)
[2023-02-17 04:11] LABS: Hemoglobin 9.9 g/dL (12.0-16.0); Mean Corpuscular HGB CONC 35.4 g/dL (32.0-36.0); Mean Corpuscular Hemoglobin 30.8 pg (27.0-31.0); Mean Corpuscular Volume 87.2 fl (78.0-98.0); Mean Platelet Volume 9.4 fL (7.4-10.4); Platelet Count 129 10x3/uL (130-400); RBC Distribution Width 15.2 % (11.5-14.5); Red Blood Cell (RBC) Count 3.21 mill/uL (4.20-5.40)
[2023-02-17 04:25] LABS: Delete Auto Diff?? YES; Manual Diff?? YES
[2023-02-17 04:35] LABS: Anion Gap 7 mmol/L (10-20); BUN (Urea Nitrogen) 14 mg/dL (9.8-20.1); Calc. Creatinine Clearance 89 mL/min (70-130); Calcium 8.5 mg/dL (7.8-10.44); Carbon Dioxide 21 mmol/L (23-31); Chloride 112 mmol/L (98-107); Estimated GFR 91; Glucose 227 mg/dL (83-110); Potassium 3.2 mmol/L (3.5-5.1); Sodium 137 mmol/L (136-145)
[2023-02-17 05:08] LABS: Band 13 % (5-11); Burr Cells SLIGHT = 2-5 cells HPF (0-1); CellaVision Operator ID lab.abc; Lymphocytes 7 % (21-51); Monocytes 1 % (0-10); Neutrophil 79 % (42-75); Platelet Adequacy Comment Platelets Normal; RBC Morphology Within Normal Limits; Smudge Cells 9.9 %; Total Cell Count 101
[2023-02-17] MEDS: Acetaminophen 325 MG TAB PO PRN (05:18)
[2023-02-17] MEDS: HumaLOG 300 UNITS/3 ML VIAL SC PRN ×2 (05:19→08:35)
[2023-02-17] MEDS: Sodium Chloride 0.45% 1,000 ML IV SCH (05:51)
[2023-02-17 07:06] VITALS: BP 159/73
[2023-02-17] MEDS ORDERED: Potassium Chloride 20 MEQ in Premix Bag 1 BAG IVPB SCH (08:00)
[2023-02-17] MEDS: Insulin Glargine 30 UNITS/0.3 ML VIAL SC SCH (08:32)
[2023-02-17] MEDS: Pantoprazole 40 MG VIAL IVP SCH (08:35)
[2023-02-17 09:10] VITALS: TEMP 99.1
== END 2023-02-17 09:17 | disposition hospice, inpatient (51) | DRG 637 ==
LOC: SUATTDRO 13:13 → ERS 13:13 → CCU 16:23
PROVIDERS: ADMIT Internal Medicine; ATTEND Family Medicine
PROC: 02H633Z Insertion of Infusion Device into Right Atrium, Percutaneous Approach (ICD-10-PCS; principal; 2023-02-14)
PROC: 5A1945Z Respiratory Ventilation, 24-96 Consecutive Hours (ICD-10-PCS; 2023-02-14)
PROC: 0BH17EZ Insertion of Endotracheal Airway into Trachea, Via Natural or Artificial Opening (ICD-10-PCS; 2023-02-14)
PROC: B548ZZA Ultrasonography of Superior Vena Cava, Guidance (ICD-10-PCS; 2023-02-14)
PROC: 4A00X4Z Measurement of Central Nervous Electrical Activity, External Approach (ICD-10-PCS; 2023-02-15)
PROC: 4A133R1 Monitoring of Arterial Saturation, Peripheral, Percutaneous Approach (ICD-10-PCS; 2023-02-15)
PROC: 4A043R1 Measurement of Venous Saturation, Peripheral, Percutaneous Approach (ICD-10-PCS; 2023-02-15)
PROC: 3E033XZ Introduction of Vasopressor into Peripheral Vein, Percutaneous Approach (ICD-10-PCS; 2023-02-15)
DX: E11.11 Type 2 diabetes mellitus with ketoacidosis with coma (principal); G93.41 Metabolic encephalopathy; I21.A1 Myocardial infarction type 2; J96.01 Acute respiratory failure with hypoxia; I63.9 Cerebral infarction, unspecified; R57.8 Other shock; N17.9 Acute kidney failure, unspecified; K92.2 Gastrointestinal hemorrhage, unspecified; Z66 Do not resuscitate; Z51.5 Encounter for palliative care; I25.10 Atherosclerotic heart disease of native coronary artery without angina pectoris; E78.5 Hyperlipidemia, unspecified; I10 Essential (primary) hypertension; Z20.822 Contact with and (suspected) exposure to COVID-19; D72.829 Elevated white blood cell count, unspecified; I48.91 Unspecified atrial fibrillation; E87.6 Hypokalemia; D64.9 Anemia, unspecified; E86.0 Dehydration; Z88.5 Allergy status to narcotic agent; Z79.899 Other long term (current) drug therapy; Z90.710 Acquired absence of both cervix and uterus; Z98.890 Other specified postprocedural states; Z91.148 Patient's other noncompliance with medication regimen for other reason; Z79.4 Long term (current) use of insulin; Z79.84 Long term (current) use of oral hypoglycemic drugs; E88.09 Other disorders of plasma-protein metabolism, not elsewhere classified
CPT/HCPCS: 36415; 36416; 36600; 51701; 70450; 71045; 80048; 80053; 80061; 80306; 80307; 81001; 82010; 82533; 82805; 83036; 83605; 83690; 83735; 84100; 84145; 84484; 85025; 87040; 93005; 93010; 93306; 94002; 94003; 95712; 95819; 95957; 96361; 96365; 96366; 96367; 96375; 96376; C9113; J0282; J0692; J1160; J1650; J1815; J2060; J2272; J2704; J3010; J3370; J3475; J3480; J3490; J7050; J7070; S0028